=== PATIENT | male | born 1960 | race Caucasian/White ===

== ENCOUNTER 2025-09-28 15:46 | Inpatient (IN) | payer MEDICARE ==
[~2025-09-28] VITALS: Ht 190.5 cm; Wt 93.9 kg
[2025-09-28] MEDS ORDERED: CLONAZEPAM 0.5 MG TABLET ONE (17:00)
[2025-09-28] MEDS ORDERED: OLANZAPINE 5 MG TABLET ONE (17:00)
[2025-09-28] MEDS ORDERED: HYDROCODONE/APAP 10-325 MG TABLET ONE (17:01)
[2025-09-28] MEDS: OLANZAPINE 5 MG TABLET PO ONE (17:06)
[2025-09-28] MEDS: HYDROCODONE/APAP 10-325 MG TABLET PO ONE (17:06)
[2025-09-28] MEDS: CLONAZEPAM 0.5 MG TABLET PO ONE (17:06)
[2025-09-28 17:40] VITALS: BP 109/77
[2025-09-28] MEDS ORDERED: MAGNESIUM HYDROXIDE 30 ML LIQUID UDC PO PRN (18:15)
[2025-09-28] MEDS ORDERED: MAG HYDROX/AL HYDROX/SIMETH 30 ML LIQUID UDC PO PRN (18:15)
[2025-09-28] MEDS ORDERED: QUETIAPINE FUMARATE 25 MG TABLET PO PRN (18:15)
[2025-09-28] MEDS: BLOOD SUGAR DIAGNOSTIC 1 EACH STRIP VI ONE (19:09)
[2025-09-28] MEDS: ZOLPIDEM 5 MG TABLET PO ONE (19:45)
[2025-09-28 20:00] VITALS: BP 129/76; TEMP 98.2; O2SAT 94
[2025-09-29 08:01] LABS: ASPARTATE AMINOTRANSFERASE 23.0 U/L (15-37); CREATININE 0.8 mg/dL (0.6-1.3); SODIUM SERUM 139.0 mmol/L (136-145); TOTAL PROTEIN, SERUM 6.7 g/dL (6.4-8.2); UREA NITROGEN, BLOOD 11.0 mg/dL (7-18)
[2025-09-29 09:16] VITALS: BP 104/62; TEMP 98; O2SAT 92
[2025-09-29] MEDS ORDERED: CLON2TAB11 PO (10:40)
[2025-09-29] MEDS ORDERED: HALOPERIDOL 0.5 MG TABLET PO PRN (11:45)
[2025-09-29] MEDS: DIVALPROEX 250 MG TABLET.DR PO SCH (13:32)
[2025-09-29] MEDS: HALOPERIDOL 2 MG TABLET PO SCH (13:32)
[2025-09-29] MEDS: CLONAZEPAM 0.5 MG TABLET PO SCH (13:32)
[2025-09-29 15:12] VITALS: BP 115/77; TEMP 98; O2SAT 98
[2025-09-29 20:19] VITALS: BP 116/72; TEMP 97.9; O2SAT 98
[2025-09-29] MEDS: ACETAMINOPHEN 325 MG TABLET PO PRN (20:51)
[2025-09-29] MEDS: SIMVASTATIN 10 MG TABLET PO SCH (21:00)
[2025-09-29] MEDS: NICOTINE 21 MG/24HR PATCH TD SCH (21:58)
[2025-09-30] MEDS: ZOLPIDEM 5 MG TABLET PO PRN (01:37)
[2025-09-30 08:15] VITALS: BP 127/78; TEMP 98; O2SAT 98
[2025-09-30 15:43] VITALS: BP 116/82; TEMP 98; O2SAT 99
[2025-09-30 20:00] VITALS: BP 126/71; TEMP 97.9; O2SAT 98
[2025-10-01 08:18] VITALS: BP 106/65; TEMP 98; O2SAT 98
[2025-10-01 16:36] VITALS: BP 95/65; TEMP 98; O2SAT 99
[2025-10-01] MEDS: LIDOCAINE 5% PATCH TD SCH (16:51)
[2025-10-01 20:18] VITALS: BP 112/69; TEMP 97.9; O2SAT 96
[2025-10-01] MEDS: HALOPERIDOL 2 MG TABLET PO PRN (20:22)
[2025-10-02 08:36] VITALS: BP 106/65; TEMP 98; O2SAT 98
[2025-10-02] MEDS: HALOPERIDOL 5 MG TABLET PO SCH (13:18)
[2025-10-02] MEDS ORDERED: HALOPERIDOL 2 MG TABLET PO SCH (14:00)
[2025-10-02 16:30] VITALS: BP 111/61; TEMP 98; O2SAT 99
[2025-10-02 20:03] VITALS: BP 109/67; TEMP 98.1; O2SAT 99
[2025-10-03 08:47] VITALS: BP 101/62; TEMP 98; O2SAT 98
[2025-10-03] MEDS: BENZTROPINE MESYLATE 0.5 MG TABLET PO SCH (12:47)
[2025-10-03] MEDS: DIVALPROEX 500 MG TABLET.DR PO SCH (13:57)
[2025-10-03] MEDS: HALOPERIDOL 5 MG TABLET PO SCH (13:57)
[2025-10-03] MEDS ORDERED: DIVALPROEX 250 MG TABLET.DR PO SCH (14:00)
[2025-10-03 16:31] VITALS: BP 110/67; TEMP 98; O2SAT 99
[2025-10-03 20:06] VITALS: BP 126/86; TEMP 98.1; O2SAT 95
[2025-10-04 07:52] VITALS: BP 106/72; TEMP 97.6; O2SAT 97
[2025-10-04 16:41] VITALS: BP 93/62; TEMP 98.1; O2SAT 94
[2025-10-04 19:42] VITALS: BP 101/64; TEMP 98; O2SAT 95
[2025-10-05 09:33] VITALS: BP 124/61; TEMP 98; O2SAT 98
[2025-10-05 15:13] VITALS: BP 105/69; TEMP 98; O2SAT 99
[2025-10-05 20:19] VITALS: BP 137/78; TEMP 98.2; O2SAT 95
[2025-10-06 07:36] VITALS: BP 101/64; TEMP 98; O2SAT 99
[2025-10-06 15:38] VITALS: BP 145/76; TEMP 98; O2SAT 92
[2025-10-06 20:24] VITALS: BP 99/62; TEMP 97.2; O2SAT 100
[2025-10-07 07:45] LABS: PLATELET COUNT (AUTO) 280 K/uL (152-348); RED BLOOD CELL COUNT(AUTO) 4.76 MIL/uL (4.06-5.63); RED CELL DISTRIBUTION WIDTH 14.0 % (12.1-16.2); WHITE BLOOD COUNT (AUTO) 5.9 K/uL (3.6-10.2)
[2025-10-07 09:24] VITALS: BP 122/67; TEMP 98; O2SAT 96
[2025-10-07 15:09] VITALS: BP 106/67; TEMP 98; O2SAT 96
[2025-10-07 20:06] VITALS: BP 109/68; TEMP 98.1; O2SAT 95
[2025-10-08 08:40] VITALS: BP 103/69; TEMP 98; O2SAT 96
[2025-10-08 16:22] VITALS: BP 97/62; TEMP 98; O2SAT 96
[2025-10-08 20:01] VITALS: BP 107/71; TEMP 97.9; O2SAT 97
[2025-10-09 08:47] VITALS: BP 122/63; TEMP 98; O2SAT 96
[2025-10-09] MEDS: HALOPERIDOL 5 MG TABLET PO SCH ×2 (13:21→23:30)
[2025-10-09 16:13] VITALS: BP 101/51; TEMP 98; O2SAT 96
[2025-10-09 20:13] VITALS: BP 101/67; TEMP 98.1; O2SAT 96
[2025-10-09] MEDS ORDERED: HALOPERIDOL 0.5 MG TABLET PO SCH (21:00)
[2025-10-10 08:39] VITALS: BP 102/68; TEMP 98; O2SAT 96
[2025-10-10 16:46] VITALS: BP 101/56; TEMP 98; O2SAT 96
[2025-10-10] MEDS: VALPROIC ACID 250 MG/5 ML LIQUID UDC PO SCH (16:53)
[2025-10-10] MEDS: TRAZODONE 50 MG TABLET PO SCH (20:31)
[2025-10-10] MEDS: HALOPERIDOL 5 MG TABLET PO SCH (20:31)
[2025-10-10 22:33] VITALS: BP 101/60; TEMP 98; O2SAT 93
[2025-10-11 09:32] VITALS: BP 111/68; TEMP 98.2; O2SAT 96
[2025-10-11] MEDS: VALPROIC ACID 250 MG/5 ML LIQUID UDC PO SCH (13:32)
[2025-10-11] MEDS: HALOPERIDOL 5 MG TABLET PO SCH (13:33)
[2025-10-11 16:59] VITALS: BP 100/66; TEMP 98.5; O2SAT 97
[2025-10-11 19:45] VITALS: BP 106/64; TEMP 98.3; O2SAT 96
[2025-10-12 08:54] VITALS: BP 122/69; TEMP 98.2; O2SAT 97
[2025-10-12 15:25] VITALS: BP 105/65; TEMP 98; O2SAT 99
[2025-10-12 20:09] VITALS: BP 118/67; TEMP 98.4; O2SAT 96
[2025-10-13 07:48] VITALS: BP 98/65; TEMP 98; O2SAT 99
[2025-10-13 15:14] VITALS: BP 101/64; TEMP 98; O2SAT 98
== END 2025-10-13 16:00 | DRG 885 ==
LOC: ER 15:46 → GPS 17:34
PROVIDERS: ADMIT Psychiatry & Neurology Psychiatry; ATTEND Student in an Organized Health Care Education/Training Program
DX: F29 Unspecified psychosis not due to a substance or known physiological condition (principal); F20.0 Paranoid schizophrenia; F25.9 Schizoaffective disorder, unspecified; R00.0 Tachycardia, unspecified; E78.5 Hyperlipidemia, unspecified; M54.50 Low back pain, unspecified; F17.210 Nicotine dependence, cigarettes, uncomplicated; Z79.899 Other long term (current) drug therapy
CPT/HCPCS: 36415; 80164; 84443; 85025; J3490